=== PATIENT | female | born 1980 | race African-American/Black ===

== ENCOUNTER 2021-12-09 13:02 | Emergency (ER) | payer SELFPAY ==
[2021-12-09] MEDS ORDERED: Ketorolac Tromethamine 30 MG/ML VIAL ONE (14:53)
[2021-12-09] MEDS ORDERED: Cyclobenzaprine 10 MG TAB ONE (15:04)
== END 2021-12-09 15:32 | disposition home or self-care (01) ==
LOC: CSHERS 13:02
DX: M62.838 Other muscle spasm (principal); D50.9 Iron deficiency anemia, unspecified
CPT/HCPCS: 96372; 99283; J1885

== ENCOUNTER 2025-02-10 10:14 | Outpatient (CLI) | payer OTHER | END 2025-02-10 10:15 | disposition home or self-care (01) | LOC: CSHMAMMO 10:14 | PROVIDERS: ATTEND Family Medicine | DX: Z12.31 Encounter for screening mammogram for malignant neoplasm of breast (principal) | CPT/HCPCS: 77063; 77067 ==